=== PATIENT | female | born 1945 | race Caucasian/White ===

== ENCOUNTER 2020-06-16 11:11 | Emergency (ER) | payer MEDICARE, OTHER ==
[2020-06-16 13:02] LABS: HEMOGLOBIN 12.8 gm/dl (12.3-15.3); RED BLOOD COUNT 4.3 M/UL (4.00-5.10)
[2020-06-16 13:29] LABS: BUN/CREATININE RATIO 17 (0-10)
== END 2020-06-16 16:02 | disposition home or self-care (01) ==
LOC: ER1 11:11
PROVIDERS: Physician Assistant
DX: U07.1 COVID-19 (principal); I10 Essential (primary) hypertension
CPT/HCPCS: 71045; 80053; 85025; 99283; M0239

== ENCOUNTER → 2020-06-22 | Outpatient (CLI) | payer MEDICARE, OTHER ==
[~2020-06-22] MED LIST: ACID REDUCER10 MG PO; CEFPODOXIME PR200 MG PO; DOXYCYCLINE HY100 MG PO
== END ==
LOC: KOH-I 10:27
DX: R06.02 Shortness of breath (principal); R05 Cough
CPT/HCPCS: 71046

== ENCOUNTER 2020-06-29 12:56 | Emergency (ER) | payer MEDICARE, OTHER ==
[2020-06-29 14:54] LABS: HEMOGLOBIN 14.1 gm/dl (12.3-15.3); RED BLOOD COUNT 4.66 M/UL (4.00-5.10)
[2020-06-29 15:14] LABS: BUN/CREATININE RATIO 14 (0-10)
[2020-06-29] MEDS ORDERED: CEFPODOXIME PR200 MG PO (16:56)
[2020-06-29] MEDS ORDERED: ACID REDUCER10 MG PO (16:56)
[2020-06-29] MEDS ORDERED: DOXYCYCLINE HY100 MG PO (16:56)
== END 2020-06-29 17:25 | disposition home or self-care (01) ==
LOC: ER1 12:56
PROVIDERS: Student in an Organized Health Care Education/Training Program
DX: K21.9 Gastro-esophageal reflux disease without esophagitis (principal); K29.70 Gastritis, unspecified, without bleeding; J18.9 Pneumonia, unspecified organism; I10 Essential (primary) hypertension; E03.9 Hypothyroidism, unspecified; Z90.49 Acquired absence of other specified parts of digestive tract; Z86.16 Personal history of COVID-19
CPT/HCPCS: 36415; 71045; 80053; 82550; 82553; 83690; 83874; 84484; 85025; 96374; 99284; Q9967

== ENCOUNTER → 2020-12-15 | Outpatient (CLI) | payer MEDICARE, OTHER ==
[~2020-12-15] VITALS: Ht 160 cm; Wt 59.0 kg
== END ==
LOC: OPSV 10:00
DX: M81.0 Age-related osteoporosis without current pathological fracture (principal)
CPT/HCPCS: 96365; J3489